=== PATIENT | male | born 1955 | race Caucasian/White ===

== ENCOUNTER 2022-06-10 09:31 | Inpatient (IN) | payer MEDICARE ==
[~2022-06-10] VITALS: Ht 165.1 cm; Wt 101.3 kg
[2022-06-10] MEDS ORDERED: LIPITOR10 MG (09:55)
[2022-06-10] MEDS ORDERED: ULTRAM50 MG PO (09:56)
[2022-06-10] MEDS ORDERED: PROPRANOLOL HCL40 MG PO (10:37)
[2022-06-10] MEDS ORDERED: ASPERCREME1 EACH TOP (10:38)
[2022-06-10] MEDS ORDERED: VITAMIN B-12250 MC2 PO (10:39)
[2022-06-10] MEDS ORDERED: ZOLPIDEM TARTRA10 MG PO (10:39)
[2022-06-10] MEDS ORDERED: BENAZEPRIL HCL10 MG PO (10:39)
[2022-06-10] MEDS ORDERED: FLOMAX0.4 MG PO (10:40)
[2022-06-10] MEDS ORDERED: SUMATRIPTAN SU100 MG PO (10:40)
[2022-06-10] MEDS ORDERED: SIMVASTATIN5 MG PO (10:40)
[2022-06-10] MEDS ORDERED: PULMICORT0.5 MG/2 M INH (10:41)
[2022-06-10] MEDS ORDERED: GABAPENTIN600 MG PO (10:41)
[2022-06-10] MEDS ORDERED: OMEPRAZOLE20 MG PO (10:41)
[2022-06-10] MEDS ORDERED: CYCLOBENZAPRINE10 MG PO (10:41)
[2022-06-10] MEDS ORDERED: ADULT ASPIRIN R81 MG PO (10:42)
[2022-06-10] MEDS ORDERED: MELOXICAM10 MG PO (10:43)
[2022-06-10] MEDS ORDERED: TEMAZEPAM30 MG PO (10:43)
--- NOTE | 2022-06-10 14:32 | NUR ---
PATIENT IS FROM OUT OF STATE AND LIVES WITH A FRIEND. THE PLAN IS THAT THE PATIENT WILL CONTINUE TO LIVE WITH HIS FRIEND. PATIENT REFUSES THE NEED FOR FACILITY PLACEMENT AT THIS TIME.
--- NOTE | 2022-06-10 15:52 | NUR ---
PATIENT RESTING WITH NO COMPLAINTS, WATCHING TV; PATIENT WAS GIVEN LUNCH TRAY, AND ATE 100%. NEURO STATUS REMAINS THE SAME. PATIENT HAD CONVERTED TO NSR WITH CONTROLLED RATE, EKG SHOWED SOME MILD ELEVATION IN LEAD 2 AND POSSIBLY AVF. IS AWARE. SERIAL TROPONINS ORDERED.
--- NOTE | 2022-06-10 16:18 | NUR ---
NOTIFIED OF PATIENT ORTHOSTATIC POSITIVE RESULTS. ALSO NOTED EYE DRAINAGE CONTINUES. NO NEW ORDERS RECEIVED AT THIS TIME
[2022-06-10] MEDS ORDERED: VENTOLIN HFA18 GM INH (18:17)
[2022-06-10] MEDS ORDERED: FISH OIL 1,2001 EAC1 PO (18:21)
[2022-06-10] MEDS ORDERED: NURTEC ODT75 MG PO (18:22)
--- NOTE | 2022-06-10 20:00 | NUR ---
Bedside report received from outgoing nurse, RYAN Wu with notice that patient still has not voided bladder. Initial assessment performed with no critical measures necessary. All vital signs stable with patient in normal sinus rhythm and no indications of respiratory distress or fever. Patient does complan of continued pain in head for which medication was admnistered at end of day shift. Will continue to monitor and provide medication as appropriate.
--- NOTE | 2022-06-10 20:20 | EKG ---
[facility] [address] [facility] [place], [place] [address] Signed Sinus tachycardia with premature supraventricular complexes Low voltage QRS Possible Lateral infarct , age undetermined Possible Inferior infarct , age undetermined Abnormal ECG No previous ECGs available Confirmed by DULCE GOTTI MD ([id number]) on 06/10/2022 8:20:29 PM Electronically Signed By: DULCE GOTTI MD 06/10/22 2020 PATIENT NAME: DEB RANDALL Electrocardiogram DATE OF : 57 PHYSICIAN: DULCE GOTTI MD REPORT #: [id number] REPORT IS CONFIDENTIAL AND NOT TO BE RELEASED WITHOUT AUTHORIZATION
--- NOTE | 2022-06-10 20:21 | EKG ---
[facility] [address] [facility] [place], [place] [address] Signed Atrial flutter with 2:1 AV conduction Inferior infarct (cited on or before 10-JUN-2022) Abnormal ECG When compared with ECG of 10-JUN-2022 09:50, (Unconfirmed) Atrial flutter has replaced Sinus rhythm ST now depressed in Inferior leads Confirmed by DULCE GOTTI MD ([id number]) on 06/10/2022 8:21:37 PM Electronically Signed By: DULCE GOTTI MD 06/10/222020 PATIENT NAME: DEB RANDALL Electrocardiogram DATE OF : 57 PHYSICIAN: DULCE GOTTI MD REPORT #: [id number] REPORT IS CONFIDENTIAL AND NOT TO BE RELEASED WITHOUT AUTHORIZATION
--- NOTE | 2022-06-10 20:22 | EKG ---
[facility] [address] [facility] [place] [address] Signed Normal sinus rhythm Cannot rule out Inferior infarct (cited on or before 10-JUN-2022) Abnormal ECG When compared with ECG of 10-JUN-2022 10:24, (Unconfirmed) Sinus rhythm has replaced Atrial flutter Vent. rate has decreased BY 88 BPM Questionable change in initial forces of Inferior leads ST elevation has replaced ST depression in Inferior leads ST no longer depressed in Anterior leads ST elevation now present in Lateral leads Confirmed by DULCE GOTTI MD ([id number]) on 06/10/2022 8:21:47 PM Electronically Signed By: DULCE GOTTI MD 06/10/222021 PATIENT NAME: DEB RANDALL Electrocardiogram DATE OF : 57 PHYSICIAN: DULCE GOTTI MD REPORT #: [id number] REPORT IS CONFIDENTIAL AND NOT TO BE RELEASED WITHOUT AUTHORIZATION
--- NOTE | 2022-06-10 22:18 | NUR ---
Patient has voided twice within the last two hours. All vital signs stable. Patient watching television with no need for additional comfort measures at this time.
--- NOTE | 2022-06-11 00:18 | NUR ---
Repeat assessment performed with no acute changes since previous assessment unless noted. Patient has voided multiple times since beggining of shift. Additionally, he requested Ambien for sleep and upon speaking with Dr. Contreras, Ativan 1 mg PO was ordered and administered. Currently, all vital signs are stable with no complaints of respiratory distess, fever or pain.
--- NOTE | 2022-06-11 02:00 | NUR ---
Patient resting comfortably with all vital signs stable. Will continue to monitor.
--- NOTE | 2022-06-11 04:00 | NUR ---
Repeat assessment performed with no acute changes since previous assessment. All vital signs are stable with no indications of fever or pain. Supplemental oxygen increased to 3 LPM when patient's O2 saturation dropped to 80s. Comfort measures provided.
--- NOTE | 2022-06-11 05:54 | NUR ---
Patient complained of shortness of breath after using the restroom and went into afib rhythm. RT was called and breathing treatment was administered. Morning steroid dose was also administered. Patient states that shortness of breath has been resolved and he has no additional pain. Normal sinus rhythm is restored and vital signs are stable.
--- NOTE | 2022-06-11 07:29 | NUR ---
Notified Dr. Contreras of coughing spell and brief conversion of afib rhythm. Orders received to draw coagulation labs. Report given to oncoming nurse.
--- NOTE | 2022-06-11 07:30 | NUR ---
REPORT RECEIVED FROM ADDICTION PROFESSIONAL NURSES. LAB IS DRAWING ADDITIONAL LABS.
--- NOTE | 2022-06-11 07:43 | NUR ---
PT UP TO BEDSIDE COMMODE, REMAINS ON O2 AND CARDIAC MONITORING. CALL LIGHT IN REACH.
--- NOTE | 2022-06-11 08:02 | NUR ---
PT OFF BEDSIDE COMMODE BACK TO BED WITH STANDBY ASSIST. VITALS OBTAINED AND PT GIVEN HIS BREAKFAST TRAY. PT VOIDED 475 ML URINE NO BM. DENIES OTHER NEEDS AT THIS TIME. PT INFORMEED THIS RN WILL BE BACK IN TO DO HIS MORNING ASSESMENT AND GIVE SCHEDULED MEDS. CALL LIGHT IN REACH.
--- NOTE | 2022-06-11 08:37 | NUR ---
DR GOTTI HAS BEEN IN WITH PT AND VERBAL ORDER FOR A R/O PE CT STUDY GIVEN, PT IS AWARE.
--- NOTE | 2022-06-11 09:12 | NUR ---
PT PLACED IN WHEELCHAIR AND ON PORTABLE O2 TANK WITH MONITOR TAKEN TO CT BY [employer] TECH. IV TO RIGHT HAND HAS BEEN FLUSHED AND IS PATENT.
--- NOTE | 2022-06-11 09:28 | NUR ---
PT BACK FROM CT, TOLERATED SCAN WELL. PT BACK TO BED AND PLACED BACK ON ROOM O2 AT 2 L NC, REMAINS ON CARDIAC AND OXIMETRY MONITORING, STARTED ZITHROMAX IV PT ASKING FOR A "BRUSH" REPORTS THE WOODARD WILL "YANK HIS HAIR AND FOURNIER" TOLD PT I WILL SEE WHAT I CAN DO. DENIES OTHER NEEDS OR WANTS HAS REFRESHED WATER MUG, DENIES NEEDING TO USE COMMODE. CALL LIGHT IN REACH.
--- NOTE | 2022-06-11 10:21 | NUR ---
CHECKED IN ON PT, HE IS RESTING WITH EYES CLOSED AT THIS TIME, VISIBLE EVEN UNLABORED RISE AND FALL OF CHEST, REMAINS ON 2 LITERS O2 NC, CALL LIGHT IN REACH.
--- NOTE | 2022-06-11 12:20 | NUR ---
PT WAS ASKING FOR SOMETHING FOR HIS COUGH, NOTIFIED DR GOTTI AND SHE ORDERED GABBYITUSSIN AC, MEDICATED PT. LUNCH BROUGHT IN. 2 FAMILY MEMBERS HERE TO SEE PT. UPDATED THEM ON PLAN OF CARE. PT HAD TO VOID PRIOR TO THEM COMING IN ROOM STANDBY ASSIST FOR PT TO STAND UP TO VOID, 400 ML.
--- NOTE | 2022-06-11 12:45 | NUR ---
CARE ASSUMED OF PT, REPORT RECEIVED FROM MERVIN DAVIS. PT CALLS TO ASK ABOUT NASAL CANNULA COMING OUT OF NOSE, WILL TRIAL PT ON ROOM AIR. HE IS CURRENTLY SITTING UP EATING LUNCH HR 80S SINUS RHYTHM.
--- NOTE | 2022-06-11 15:17 | NUR ---
PT C/O COUGHING SPELL, CEPACOL LOZENGE GIVEN WELL PRN COUGH MEDICATION.
--- NOTE | 2022-06-11 18:15 | NUR ---
RT IN TO DO NEB TX PER REQUEST
--- NOTE | 2022-06-11 19:45 | NUR ---
PT ASSESSED AND FOUND TO BE RESTING IN HOSPITAL BED. PT IS ALERT AND ORIENTED X 4 WITH A GCS OF 15. PT MOVES ALL EXTREMITIES WITH PURPOSE. CMS INTACT X 4. PT COMPLAINS OF MILD PAIN TO HIS ABDOMEN DURING EPISODES OF COUGHING, AND DESCRIBES THE PAIN A CRAMPING SENSATION. PT PROVIDED WITH ISP AND EDUCATED ON BREATHING EXERCISES. PT INHALED 2500 ON ISP. PT WITH NO CONCERNS AT THIS TIME. NURSE CALL LIGHT PLACED ON PATIENTS SIDE.
--- NOTE | 2022-06-12 06:24 | NUR ---
PT REMAINS AWAKE, ALERT AND ORIENTED X 4 WITH A GCS OF 15. PT IS PLEASANT TO WORK WITH, FOLLOWS ALL COMMANDS AND COMMUNICATES WELL. PT HAS BEEN IN A NSR, NORMOTENSIVE AND A-FEBRILE. PT'S LS CONTINUE TO BE COARSE AND DIMINISHED IN BASIS. ISP AND BREATHING EXERCISES PERFORMED MULTIPLE TIMES THOUGHOUT THE NIGHT. PT WITH STRONG COUGH. PT ABLE TO STAND AND AMBULATE TO TOILET WITH MINIMAL ASSISTANCE. PT CONTINUES TO C/O PAIN TO HEAD S/P FALL WHILE AT HOME. PT DENIES ANY N/V OR DIZZINESS AT THIS TIME. WELL ASK DAYSHIFT RN TO CONSULT WITH MD DURING ROUNDS REGARDING CONCERN FOR HEAD INJURY.
--- NOTE | 2022-06-12 07:30 | NUR ---
REPORT RECEIVED FROM MAURA DAVIS. PT RESTING, EYES CLOSED, HR SINUS RHYTHM 90'S.
--- NOTE | 2022-06-12 07:56 | NUR ---
BREAKFAST BROUGHT IN TO PT, PT REQUESTS PAIN MEDICATION FOR HEADACHE. WILL BRING IN AM MEDS.
--- NOTE | 2022-06-12 09:06 | NUR ---
PT UP TO USE BATHROOM TO VOID, STEADY ON FEET, DENIES DIZZINESS ALTHOUGH HE DOES SEEM NERVOUS AND RELUCTANT TO WALK AROUND BECAUSE OF PREVIOUS FALLS, HE REPORTS THAT DURING THESE FALLS HE HAS NO DIZZINESS OR LIGHTHEADEDNESS OR WEAKNESS, HE JUST FEELS THAT "MY HIPS GIVE OUT AND I JUST BUCKLE". PT OUT TO AMBULATE IN JONES WITH ASSIST AFTERWARDS AND HR REMAIND 90'S SINUS RHYTHM. PT THEN BACK TO BRUSH TEETH AND SIT UP IN THE CHAIR WITH TABLE AND CALL LIGHT IN REACH.
--- NOTE | 2022-06-12 09:53 | NUR ---
PT REQUESTS TO GET BACK INTO BED, ASSISTED BACK TO BED BY FLOAT RN. PT REMAINS ON ROOM AIR, SPO2 93-96%.
--- NOTE | 2022-06-12 10:49 | NUR ---
PT CALLS TO REQUEST BREATHING TX, STATES HE IS FEELING SOB, SITTING UP IN BED WITH SPO2 98% ON ROOM AIR. RT IN TO DO NEX TX.
--- NOTE | 2022-06-12 11:41 | NUR ---
PT UP TO BATHROOM TO VOID AND THEN BACK TO BED TO EAT LUNCH. STEADY ON FEET, HR REMAINS 80'S, NO C/O LIGHTHEADEDNESS/DIZZINESS. ONCE BADCK IN BED HE REQUESTS MEDICATION FOR HIP PAIN-FLEXERIL GIVEN.
--- NOTE | 2022-06-12 11:43 | NUR ---
DR SOTO IN TO SEE PT.
[2022-06-12] MEDS ORDERED: ADULT ASPIRIN R81 MG PO (12:21)
[2022-06-12] MEDS ORDERED: METOPROLOL SUCC25 MG PO (12:21)
[2022-06-12] MEDS ORDERED: FLONASE ALLERG9.9 ML NAS (12:22)
[2022-06-12] MEDS ORDERED: PSEUDOEPHEDRINE60 MG PO (12:23)
[2022-06-12] MEDS ORDERED: CODEINE-GUAIFE120 ML PO (12:25)
--- NOTE | 2022-06-12 14:00 | NUR ---
PT AND STEP DAUGHTER LETICIA GIVEN DISCHARGE INSTRUCTIONS, PERSCRIPTION GIVEN TO STEP DAUGHTER. PT WHEELED OUT WITH WITH MARIELENA DAVIS.
== END 2022-06-12 14:12 | disposition home or self-care (01) | DRG 310 ==
LOC: ED 09:31 → CCU 11:58
PROVIDERS: ADMIT Internal Medicine; ATTEND Internal Medicine
DX: I48.0 Paroxysmal atrial fibrillation (principal); Z20.822 Contact with and (suspected) exposure to COVID-19; I48.92 Unspecified atrial flutter; J01.90 Acute sinusitis, unspecified; I10 Essential (primary) hypertension; N40.0 Benign prostatic hyperplasia without lower urinary tract symptoms; E78.5 Hyperlipidemia, unspecified; J20.9 Acute bronchitis, unspecified; R29.6 Repeated falls; K21.9 Gastro-esophageal reflux disease without esophagitis; G47.00 Insomnia, unspecified; H43.399 Other vitreous opacities, unspecified eye; G89.4 Chronic pain syndrome; Z87.820 Personal history of traumatic brain injury; Z88.0 Allergy status to penicillin; Z79.899 Other long term (current) drug therapy
CPT/HCPCS: 36415; 71045; 71260; 80048; 80053; 83735; 83880; 84153; 84484; 85025; 85379; 85610; 87502; 93005; 93010; 94640; 94667; 94668; 96374; 96376; 99285-25; A9270; A9270-GY; C9803; J0456; J0696; J1650; J2920; J7030; J7060; U0003

== ENCOUNTER 2022-07-12 23:59 | Observation (INO) | payer MEDICARE ==
[~2022-07-12] VITALS: Ht 170.2 cm; Wt 102.0 kg
[~2022-07-12 23:59] MED LIST: ADULT ASPIRIN R81 MG PO; ASPERCREME1 EACH TOP; BENAZEPRIL HCL10 MG PO; CODEINE-GUAIFE120 ML PO; CYCLOBENZAPRINE10 MG PO; FISH OIL 1,2001 EAC1 PO; FLOMAX0.4 MG PO; FLONASE ALLERG9.9 ML NAS; GABAPENTIN600 MG PO; LIPITOR10 MG; MELOXICAM10 MG PO; METOPROLOL SUCC25 MG PO; NURTEC ODT75 MG PO; OMEPRAZOLE20 MG PO; PROPRANOLOL HCL40 MG PO; PSEUDOEPHEDRINE60 MG PO; PULMICORT0.5 MG/2 M INH; SIMVASTATIN10 MG PO; SUMATRIPTAN SU100 MG PO; TEMAZEPAM30 MG PO; TRAMADOL HCL50 MG PO; VENTOLIN HFA18 GM INH; VITAMIN B-12250 MCG PO; ZOLPIDEM TARTRA10 MG PO
[2022-07-13] MEDS ORDERED: BENAZEPRIL HCL10 MG PO (00:17)
[2022-07-13] MEDS ORDERED: PROPRANOLOL HCL40 MG PO (00:18)
--- NOTE | 2022-07-13 07:30 | NUR ---
REPORT RECIEVED. PATIENT IS AWAKE SITTING UP IN BED WATCHING TV. ASKING FOR PAIN MEDICATION. TALKED WITH PATIENT ABOUT DR. SOTO SEE HIM, THEN MEDICATIONS WILL BE ORDERED. ASSESSMENT DONE.
--- NOTE | 2022-07-13 07:36 | NUR ---
PT IS A NEW ADMIT TO UNIT. PT TRANSFERRED FROM ED [facility] TO HOSPITAL BED WITHOUT PROBLEM. PT IS A&O X 4 WITH A GCS OF 15. PT MOVES ALL EXTREMITIES WITH PURPOSE, CMS INTACT X 4. PTS RESPIRATIONS ARE NON-LABORED. PT DOES NOT APPEAR TO BE IN ANY DISTRESS, AND IS SPEAKING IN FULL SENTANCES. P IS NOTED TO BE IN A NSR, NORMOTENSIVE AND A-FEBRILE. LS CLEAR THROUGHOUT. LABS: TROP NEGATIVE, ELECTROLYTE WNL, H/H STABLE, AND WBC IS WNL.
--- NOTE | 2022-07-13 08:00 | NUR ---
SITTING UP IN BED FOR BREAKFAST.
--- NOTE | 2022-07-13 08:10 | NUR ---
Spoke with pt. He has difficulty finding words. 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 He has a "plate" in his head. Recently moved to [place] from [place] with his . His in Apr. He has been staying with his step daughter. He is unclear what his dc plan will be, but would like to return to his step daughter's home. Pt has frequent falls. Pt has been having issues with Afib over the last first months. Pt has had two admissions for his A Fib. We did discuss if pt has family he can return to stay with in [place]. He states it is all unclear and his step daughter, Mariposa, is taking care of everything for him. He also states Mariposa has been off due to her mother's , but will need to return to work. Will follow up with Mariposa.
--- NOTE | 2022-07-13 09:00 | NUR ---
PATIENT STANDING AT SIDE OF BED USING URINAL AND BACK TO BED. VITALS AND I&OS CHARTED. PATIENT WILL BE TRANSFERRING TO THE MEDICAL FLOOR THIS MORNING.
--- NOTE | 2022-07-13 09:00 | NUR ---
ORDERS RECEIVED TO TRANSFER TO MED-SURG.
--- NOTE | 2022-07-13 09:30 | NUR ---
TO MED-SURG VIA BED. IS NOW ON TELE #6, REMAINS IN SR.
--- NOTE | 2022-07-13 09:40 | NUR ---
PT TRANSFERED TO RM 107 VIA. HR NSR PER TELE. IV FLUIDS STARTED PER ORDER. BP 109/58 (69). PT C/O PAIN AND ASKS QUESTIONS ABOUT REGULAR MEDICATIONS, WILL DISCUSS WITH MD. PT DENIES NEEDS AT THIS TIME. ORIENTED TO CALL LIGHT AND SAFETY PRECAUTIONS. PT VERBALIZED UNDERSTANDING. CALL LIGHT WITHIN REACH.
--- NOTE | 2022-07-13 11:15 | NUR ---
PT C/O 10/22 BACK AND HIP PAIN, GIVEN PRN ULTRAM, SEE EMAR. DENIES FURTHER NEEDS AT THIS TIME. CALL LIGHT IN REACH.
--- NOTE | 2022-07-13 13:15 | NUR ---
Received a call from pts Step daughter, Mariposa. She is currently in [place] and cannot return until Monday. She is very concerned and does not want pt dcd to home with her 16 yo son. She states she needs to be there. She is also a nurse and states she knows we cannot dc if it is not safe. After longer discussion with Mariposa, she was less frustrated and able to listen to what I was telling her. We do not plan on an unsafe dc. I am not sure when pt will dc. did not document no medical need. Explained OBS status, if pt requires IP admission this will happen, if not he will remain OBS and would be dischargeable tomorrow. If there is not a safe dc he would need to stay, but they may have to pay for the extra night. Mariposa discussed her concern for P[place] and he and mom came to stay with her from [place] when her mom was dying in [place]. Mom in April and he remained. It has become clear he is very dependent and cannot live alone. Mariposa works multimedia programmer and will need to return to work. We discussed options of AFC, RESIDENTIAL, or SNF. I does not qualify for a SNF as he is OBS. Pt would need to pay out of pocket. We discussed he owns a house and he would need to sell his home to pay for RESIDENTIAL or AFC. These are out of pocket. She is unsure what pts income is, but does believe he has some funds in savings. She states his daughter is currently living in his home in [place]. Other children and siblings live there. She feels pt may need to return to his family. She will return to [place] on Monday and will be able to take pt home then. Dr. Crain updated.
--- NOTE | 2022-07-13 16:44 | EKG ---
[facility] [address] [place] [address] Signed Sinus tachycardia Low voltage QRS Inferior infarct (cited on or before 10-JUN-2022) Abnormal ECG When compared with ECG of 10-JUN-2022 13:55, Vent. rate has increased BY 58 BPM Questionable change in initial forces of Inferior leads Nonspecific T wave abnormality now evident in Inferior leads Confirmed by VENESSA SOTO MD ([id number]) on 07/13/2022 4:44:39 PM Electronically Signed By: VENESSA SOTO MD 07/13/22 1644 PATIENT NAME: DEB RANDALL Electrocardiogram DATE OF : 57 PHYSICIAN: VENESSA SOTO MD REPORT #: [id number] REPORT IS CONFIDENTIAL AND NOT TO BE RELEASED WITHOUT AUTHORIZATION
--- NOTE | 2022-07-13 16:44 | EKG ---
[facility] [address] [facility] [place] [address] Signed Atrial fibrillation Low voltage QRS Inferior infarct (cited on or before 10-JUN-2022) Abnormal ECG When compared with ECG of 13-JUL-2022 00:13, (Unconfirmed) Atrial fibrillation has replaced Sinus rhythm Vent. rate has decreased BY 58 BPM Confirmed by VENESSA SOTO MD ([id number]) on 07/13/2022 4:44:44 PM Electronically Signed By: VENESSA SOTO MD 07/13/22 1644 PATIENT NAME: DBE RANDALL Electrocardiogram DATE OF : 57 PHYSICIAN: VENESSA SOTO MD REPORT #: [id number] REPORT IS CONFIDENTIAL AND NOT TO BE RELEASED WITHOUT AUTHORIZATION
--- NOTE | 2022-07-13 17:26 | NUR ---
PT IN BED. VITALS AND IS AND OS COMPLETE. PT URINAL EMPTIED. PT STATED HE FELT THAT HE WAS MISSING SOME OF HIS NIGHTTIME MEDS. PT WAS UNSURE OF WHAT MEDS BUT AFTER FURTHER CONVERSATION, PT STATED HE USUALLY TAKES A VITAMIN C AND FISH OIL. RN NOTIFIED. NO FURTHER NEEDS. CALL LIGHT WITHIN REACH
--- NOTE | 2022-07-13 19:22 | NUR ---
REPORT RECEIVED FROM RYAN DE LA ROSA. pt RESTING IN BED ON RIGHT SIDE, SNORING, BREATHING UNLABORED. HR 74 ON TELE 6, SR.
--- NOTE | 2022-07-13 20:00 | NUR ---
VITALS, I/O COMPLETED, AND DOCUMENTED. FRESH ICE WATER GIVEN. PT TALKING ABOUT COUGHING UP "LUNG BISQUITS" OFF AND ON. BREATHING TREATMENT PER RT, PT QUESTIONED THIS RN ABOUT THE MEDICATION. PT CALLED ROSE DANIELS TO WONDER WHY HE WAS TAKING IT, INFORMED JEREMIAH PT HAD "WHEEZING" DOCUMENTED IN PROGRESS NOTES, THEN PT SAID OH THATS RIGHT. JEREMIAH REASSURED PT ALL IS OK.
--- NOTE | 2022-07-13 20:40 | NUR ---
pt RESTING IN BED AWAKE. VSS. SCHEDULED MEDICATIONS ADMINISTERED. PRN PAIN MEDICATION ADMINISTERED FOR 7/10 GENERALIZED CHRONIC PAIN. ASSESSMENT COMPLETE. IV SITES FLUSHED WNL, SL. CRANBERRY JUICE AND ICE WATER PROVIDED. CALL LIGHT IN REACH. LIGHTS OFF IN ROOM.
--- NOTE | 2022-07-13 23:17 | NUR ---
CHECKED ON pt. SITTING UP IN BED WATCHING TV. PRN PAIN MEDICATION ADMINISTERED FOR 7/10 PAIN "ALL OVER". ORAL CARE SUPPLIES PROVIDED REQUESTED AND ICE CREAM. ICE WATER REFILLED. URINAL EMPTIED. CALL LIGHT IN REACH.
--- NOTE | 2022-07-14 00:35 | NUR ---
CALL LIGHT ANSWERED. PRN SLEEP MEDICATION ADMINISTERED REQUESTED. pt RATES PAIN 6/10 IN HIPS. PRN TYLENOL ADMINISTERED. URINAL EMPTIED. CALL LIGHT IN REACH.
--- NOTE | 2022-07-14 01:45 | NUR ---
CALL LIGHT ANSWERED. URINAL EMPTIED. VSS. SCHEDULED METOPROLOL ADMINISTERED. ASSESSMENT COMPLETE. ICE WATER REFILLED. NO ADDITIONAL NEEDS AT THIS TIME.
--- NOTE | 2022-07-14 04:55 | NUR ---
pt RESTING IN BED ON RIGHT SIDE. BREATHING UNLABORED, RR 18. HR 76 ON TELE 6. SR.
--- NOTE | 2022-07-14 05:43 | NUR ---
pt REQUESTING PRN PAIN MEDICATION FOR CHRONIC PAIN, RATES PAIN 11/21. PRN PAIN MEDICATION ADMINISTERED. ICE WATER REFILLED. SNACK PROVIDED. URINAL EMPTIED. CALL LIGHT IN REACH.
--- NOTE | 2022-07-14 08:00 | NUR ---
REPORT RECEIVED FROM NIGHT RN AND PT CARE RESUMED. PT. IS ALERT AND ORIENTED TO ALL. ASSESSMENT COMPLETED AND MEDS ADMINISTERED. PT. ASSISTED WITH MEAL SET UP. HE REFUSES TO SIT IN THE CHAIR AT THIS TIME AND ASSISTED WITH SITTING AT EOB. LEFT RESTING WITH CALL LIGHT IN REACH.
--- NOTE | 2022-07-14 09:35 | NUR ---
ORTHOSTATIC VITALS NEGATIVE. PT. TOLERATED WELL. NEW BEDDING. LEFT RESTING WITH CALL LIGHT IN REACH.
--- NOTE | 2022-07-14 13:15 | NUR ---
PT. C/O RIB AND HIP PAIN THAT IS UNCONTROLLED BY CURRENT PRN MEDS. HE STATES THESE PAINS ARE CHRONIC. UPDATED AND NEW ORDERS CARLINE.
[2022-07-14] MEDS ORDERED: ASPIR-TRIN325 MG PO (13:20)
[2022-07-14] MEDS ORDERED: RED YEAST RICE600 M1 PO (13:22)
[2022-07-14] MEDS ORDERED: VITAMIN C500 M1 PO (13:23)
--- NOTE | 2022-07-14 13:23 | NUR ---
MED REC COMPLETE
--- NOTE | 2022-07-14 13:30 | NUR ---
BREAKFAST ATTENDANT DISCUSSED CONERNS OF ST ELEVATION SEEN ON TELE. SPOKE WITH DR SOTO REGARDING CONCERNS, DR SOTO STATED PT HAS CHRONIC ELEVATION, NO CONCERN AT THIS TIME. CONTINUE WITH DC TELE ORDER.
--- NOTE | 2022-07-14 14:07 | NUR ---
Spoke with Jackson. Let I know I spoke with Dr. Crain and he does not meet IP criteria. Plan for step daughter to pick him up tomorrow when she returns home. I will call Mariposa and update.
[2022-07-14] MEDS ORDERED: METOPROLOL SUCC50 MG PO (14:49)
[2022-07-14] MEDS ORDERED: BENZONATATE100 MG PO (14:50)
[2022-07-14] MEDS ORDERED: LIDOCAINE PAIN1 EACH TD (14:51)
--- NOTE | 2022-07-14 16:32 | NUR ---
DC INSTRUCTIONS REVIEWED AND ALL QUESTIONS ANSWERED. IV X2 PULLED AND CATH INTACT. PT. BROUGHT ICE WATER AND PRN MED. CALL LIGHT IN REACH.
== END 2022-07-14 17:00 | disposition home or self-care (01) ==
LOC: ED 23:59 → MS 07-13 → CCU 07-13 → MS 07-13 08:45
PROVIDERS: ADMIT Internal Medicine; ATTEND Internal Medicine
DX: I48.0 Paroxysmal atrial fibrillation (principal); J45.909 Unspecified asthma, uncomplicated; N40.0 Benign prostatic hyperplasia without lower urinary tract symptoms; K21.9 Gastro-esophageal reflux disease without esophagitis; E78.5 Hyperlipidemia, unspecified; G89.4 Chronic pain syndrome; F11.20 Opioid dependence, uncomplicated; Z88.0 Allergy status to penicillin; Z20.822 Contact with and (suspected) exposure to COVID-19; F51.04 Psychophysiologic insomnia
CPT/HCPCS: 36415; 71045; 80053; 83735; 84484; 85025; 85610; 93005; 93010; 93306; 94640; 94760; 96372; A9270; G0378; J1650; J7030; J7040; J7121; U0003

== ENCOUNTER 2022-08-09 17:06 | Emergency (ER) | payer MEDICARE ==
[~2022-08-09] VITALS: Ht 170.2 cm; Wt 103.4 kg
[~2022-08-09 17:06] MED LIST changes: +ASPIR-TRIN325 MG PO; +BENZONATATE100 MG PO; +LIDOCAINE PAIN1 EACH TD; +METOPROLOL SUCC50 MG PO; +RED YEAST RICE600 M1 PO; +VITAMIN C500 M1 PO
--- OUTSIDE RECORDS SUMMARY | 2022-08-09 17:08 | XMS ---
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 - 2 Visits in 30 Days - [facility] CARE PROVIDERS There are no care providers on record at this time. Farhan has no Care Guidelines for this patient. [place] V[facility] (12 MO.) [facility] NOTE: Visits indicate total known visits. ED/C VISIT TRACKING (12 MO.) [facility] [place] [facility] Emergency COMPLAINT: - HEART RATE ISSUES 07/12/2022 23:59 [facility] [place] TYPE: Emergency COMPLAINT: - BLOOD PRESSURE ISSUES 06/10/2022 09:32 [facility] [place] TYPE: Emergency COMPLAINT: - COUGH INPATIENT VISIT TRACKING (12 MO.) 07/13/2022 00:00 [facility] [place] TYPE: Observation COMPLAINT: - HYPOTENSION DIAGNOSES: - Opioid dependence, uncomplicated - Unspecified asthma, uncomplicated - Paroxysmal atrial fibrillation - Chronic pain syndrome - Hyperlipidemia, unspecified - Psychophysiologic insomnia - Benign prostatic hyperplasia without lower urinary tract symptoms - Allergy status to penicillin - Gastro-esophageal reflux disease without esophagitis - Contact with and (suspected) exposure to COVID-19 06/10/2022 11:[address] [facility] [place] TYPE: Critical Care COMPLAINT: - ATRIAL FIBRILLATION/FLUTTER DIAGNOSES: - Contact with and (suspected) exposure to COVID-19 - Essential (primary) hypertension - Other vitreous opacities, unspecified eye - Hyperlipidemia, unspecified - Hyperlipidemia, unspecified - Acute bronchitis, unspecified - Contact with and (suspected) exposure to COVID-19 - Chronic pain syndrome - Insomnia, unspecified - Paroxysmal atrial fibrillation - Paroxysmal atrial fibrillation - Chronic pain syndrome - Other jail (current) drug therapy - Repeated falls - Repeated falls - Personal history of traumatic brain injury - Acute sinusitis, unspecified - Insomnia, unspecified - Personal history of traumatic brain injury - Acute sinusitis, unspecified - Gastro-esophageal reflux disease without esophagitis - Essential (primary) hypertension - Other jail (current) drug therapy - Benign prostatic hyperplasia without lower urinary tract symptoms - Benign prostatic hyperplasia without lower urinary tract symptoms - Acute bronchitis, unspecified - Unspecified atrial flutter - Other vitreous opacities, unspecified eye - Unspecified atrial fibrillation - Allergy status to penicillin - Gastro-esophageal reflux disease without esophagitis - Unspecified atrial flutter - Allergy status to penicillin [email or web address]
--- NOTE | 2022-08-12 21:18 | EKG ---
[facility] [address] [facility] [place] [address] Signed Sinus rhythm with frequent premature ventricular complexes and premature atrial complexes Low voltage QRS Inferior infarct (cited on or before 10-JUN-2022) Abnormal ECG When compared with ECG of 13-JUL-2022 01:19, Sinus rhythm has replaced Atrial fibrillation Confirmed by VENESSA SOTO MD ([id number]) on 08/12/2022 9:17:45 PM Electronically Signed By: VENESSA SOTO MD 08/12/22 2118 PATIENT NAME: DEB RANDALL Electrocardiogram DATE OF : 57 PHYSICIAN: VENESSA SOTO MD REPORT #: [id number] REPORT IS CONFIDENTIAL AND NOT TO BE RELEASED WITHOUT AUTHORIZATION
== END 2022-08-09 21:00 | disposition home or self-care (01) ==
LOC: ED 17:06
DX: I48.0 Paroxysmal atrial fibrillation (principal); I10 Essential (primary) hypertension; E78.5 Hyperlipidemia, unspecified; Z88.0 Allergy status to penicillin; Z79.899 Other long term (current) drug therapy; Z79.82 Long term (current) use of aspirin
CPT/HCPCS: 36415; 80053; 83735; 84484; 85025; 93005; 93010; 96374; 96376; 99285-25

== ENCOUNTER 2022-10-13 16:11 | Emergency (ER) | payer MEDICARE ==
--- OUTSIDE RECORDS SUMMARY | 2022-10-13 16:14 | XMS ---
PreManage Notification: DEB RANDALL Security Manager Mass Events No recent Security Events currently on file [facility] There are no care providers on record at this time. Farhan has no Care Guidelines for this patient. [place] VISIT COUNT (12 MO.) 4 AVINASH Desai TOTAL 4 NOTE: Visits indicate total known visits. ED/C VISIT TRACKING (12 MO.) 10/13/2022 16:12 AVINASH Feliz [place] TYPE: Emergency COMPLAINT: - CHEST PAIN 08/09/2022 17:07 AVINASH Feliz OR TYPE: Emergency COMPLAINT: - HEART RATE ISSUES DIAGNOSES: - Allergy status to penicillin - Essential (primary) hypertension - Hyperlipidemia, unspecified - assisted (current) use of aspirin - Other assisted (current) drug therapy - Palpitations - Paroxysmal atrial fibrillation 07/12/2022 23:59 AVINASH Feliz OR TYPE: Emergency COMPLAINT: - BLOOD PRESSURE ISSUES 06/10/2022 09:32 AVINASH Feliz OR TYPE: Emergency COMPLAINT: - COUGH INPATIENT VISIT TRACKING (12 MO.) 07/13/2022 00:00 AVINASH Feliz OR TYPE: Observation COMPLAINT: - HYPOTENSION DIAGNOSES: - Allergy status to penicillin - Benign prostatic hyperplasia without lower urinary tract symptoms - Chronic pain syndrome - Contact with and (suspected) exposure to COVID-19 - Gastro-esophageal reflux disease without esophagitis - Hyperlipidemia, unspecified - Opioid dependence, uncomplicated - Paroxysmal atrial fibrillation - Psychophysiologic insomnia - Unspecified asthma, uncomplicated 06/10/2022 11:58 AVINASH Feliz OR TYPE: Critical Care COMPLAINT: - ATRIAL FIBRILLATION/FLUTTER DIAGNOSES: - Acute bronchitis, unspecified - Acute bronchitis, unspecified - Acute sinusitis, unspecified - Acute sinusitis, unspecified - Allergy status to penicillin - Allergy status to penicillin - Benign prostatic hyperplasia without lower urinary tract symptoms - Benign prostatic hyperplasia without lower urinary tract symptoms - Chronic pain syndrome - Chronic pain syndrome - Contact with and (suspected) exposure to COVID-19 - Contact with and (suspected) exposure to COVID-19 - Essential (primary) hypertension - Essential (primary) hypertension - Gastro-esophageal reflux disease without esophagitis - Gastro-esophageal reflux disease without esophagitis - Hyperlipidemia, unspecified - Hyperlipidemia, unspecified - Insomnia, unspecified - Insomnia, unspecified - Other assisted (current) drug therapy - Other assisted (current) drug therapy - Other vitreous opacities, unspecified eye - Other vitreous opacities, unspecified eye - Paroxysmal atrial fibrillation - Paroxysmal atrial fibrillation - Personal history of traumatic brain injury - Personal history of traumatic brain injury - Repeated falls - Repeated falls - Unspecified atrial fibrillation - Unspecified atrial flutter - Unspecified atrial flutter [email or web address]
[2022-10-13 18:29] VITALS: BP 124/68
--- NOTE | 2022-10-14 13:02 | EKG ---
[facility] [address] [place] [address] Signed Sinus rhythm with 1st degree AV block with premature supraventricular complexes Low voltage QRS Inferior infarct (cited on or before 10-JUN-2022) Abnormal ECG When compared with ECG of 09-AUG-2022 17:25, premature ventricular complexes are no longer present FL interval has increased Confirmed by VENESSA SOTO MD ([id number]) on 10/14/2022 1:02:34 PM Electronically Signed By: VENESSA SOTO MD 10/14/22 1302 PATIENT NAME: DEB RANDALL Electrocardiogram DATE OF : 57 PHYSICIAN: VENESSA SOTO MD REPORT #: [id number] REPORT IS CONFIDENTIAL AND NOT TO BE RELEASED WITHOUT AUTHORIZATION
== END 2022-10-13 18:32 | disposition home or self-care (01) ==
LOC: ED 16:11
DX: I49.8 Other specified cardiac arrhythmias (principal); I10 Essential (primary) hypertension; E78.5 Hyperlipidemia, unspecified; I48.91 Unspecified atrial fibrillation; Z88.0 Allergy status to penicillin; Z79.899 Other long term (current) drug therapy; Z79.891 Long term (current) use of opiate analgesic; Z79.82 Long term (current) use of aspirin
CPT/HCPCS: 36415; 71045; 80053; 83735; 83880; 84484; 85025; 85379; 85610; 93005; 93010; 99285-25